=== PATIENT | male | born 2005 | race Caucasian/White ===

== ENCOUNTER → 2025-05-04 08:06 | Outpatient (REF) | payer OTHER, SELFPAY | LOC: PAVMRI 08:06 | PROVIDERS: ATTENDING PHYSICIAN Internal Medicine | DX: I51.4 Myocarditis, unspecified (principal); R79.89 Other specified abnormal findings of blood chemistry; R07.9 Chest pain, unspecified | CPT/HCPCS: 75561; 75565; A9585 ==